=== PATIENT | male | born 1965 | race Caucasian/White ===

== ENCOUNTER 2016-12-28 18:47 | Emergency (ER) | payer OTHER ==
[~2016-12-28] VITALS: Ht 162.6 cm; Wt 64.3 kg
[~2016-12-28 18:47] MED LIST: ERYT1OIN55 OPB
[2016-12-28 18:52] VITALS: TEMP 36.7; Ht 162.6 cm; Wt 64.3 kg
[2016-12-28] MEDS ORDERED: SERT50TA PO (19:58)
[2016-12-28] MEDS ORDERED: TRAZ50TA35 PO (19:58)
[2016-12-28] MEDS ORDERED: HYDR50CA2 PO (19:58)
--- NOTE | 2016-12-28 21:23 | DIAGNOSTIC IMAGING REPORT ---
CT SCAN OF THE LUMBAR SPINE WITHOUT IV CONTRAST CLINICAL HISTORY: Fall with thoracic back pain. Left leg numbness. COMPARISON STUDY: Radiograph of lumbar spine dated 01/28/2010. TECHNIQUE: CT scan of lumbar spine is performed from the lower thoracic spine to the sacrum. Images are reviewed in the axial, sagittal, and coronal planes. IV contrast was not administered for this examination. FINDINGS: The skeletal structures are well mineralized. There is no evidence of fracture or malalignment involving the lumbar spine. Vertebral body height and alignment are maintained. Small anterior osteophytes are seen throughout. There are postoperative changes from laminectomy, posterior fusion, and interposition bone graft at L5-S1. The orthopedic hardware appears intact. Intervertebral screws are present at both levels. The remaining spinous processes in the transverse processes are preserved. There is no evidence of spondylolysis. There is evidence of discectomy at L5-S1. Mild to moderate disc space narrowing is seen at L3-L4 and L4-L5. Only mild disc space narrowing is seen at the remaining lumbar levels. Broad-based posterior disc bulge is seen at L3-L4 and L4-L5. This likely contribute to mild acquired compromise of the central canal. No high-grade neural foraminal stenosis is suggested. No lytic or blastic lesions are seen. The visualized sacrum and bony pelvis appear intact. The paraspinous soft tissues are within normal limits noting postoperative change posteriorly at L5. The partially imaged retroperitoneal structures are grossly unremarkable and incompletely evaluated. There is mild atherosclerotic calcification of the abdominal aorta. IMPRESSION: 1. There is no evidence of fracture or malalignment involving the lumbar spine. 2. Postoperative and degenerative change as detailed above. Dictated: 12/28/2016 7:45 PM Transcribed: 12/28/2016 9:22 PM Sally Electronically signed by: Valdez Stafford M.D. 12/28/2016 9:23 PM Dictated Date/Time: 12/28/2016 7:45 PM
--- NOTE | 2016-12-28 21:25 | DIAGNOSTIC IMAGING REPORT ---
CT SCAN OF THE BONY PELVIS WITHOUT IV CONTRAST CLINICAL HISTORY: Fall. Pelvic pain. COMPARISON STUDY: No priors. TECHNIQUE: CT scan of the bony pelvis is performed from the pelvic inlet to the proximal femora. Images reviewed in the axial, sagittal, and coronal planes. IV contrast was not administered for this examination. CT DOSE: 1493.44 mGy.cm FINDINGS: The skeletal structures are well mineralized. There is no evidence of fracture involving the hips or bony pelvis. The joint spaces of the hips appear preserved. There is no evidence of osteonecrosis. No lytic or blastic lesions are seen. Fusion hardware is noted at L5-S1. The hip joints appear maintained. The sacroiliac joints show minimal degenerative sclerosis. The musculature of the pelvis is normal and symmetric. The prostate gland is mildly enlarged and heterogeneous. The bladder wall appears thickened and trabeculated suggesting chronic outlet obstruction. The visualized small bowel loops and colon are normal in appearance. There is no pelvic sidewall or inguinal lymphadenopathy. Atherosclerotic calcification is seen within the abdominal aorta and iliac arteries. IMPRESSION: There is no evidence of fracture involving the hips or bony pelvis. Dictated: 12/28/2016 7:49 PM Transcribed: 12/28/2016 9:24 PM [email or web address] Electronically signed by: Valdez Stafford M.D. 12/28/2016 9:25 PM Dictated Date/Time: 12/28/2016 7:49 PM
--- NOTE | 2016-12-28 21:37 | DIAGNOSTIC IMAGING REPORT ---
BONY ORBITS 3 VIEWS CLINICAL HISTORY: MRI clearance. FINDINGS: 3 views of the bony orbits are obtained. No prior studies are available for comparison at the time of dictation. There is no radiodense/metallic foreign body seen in the region of the bony orbits. The bony orbits are intact as imaged. The visualized paranasal sinuses and the mastoid air cells appear clear. The imaged calvarium appears intact. IMPRESSION: There is no radiodense/metallic foreign body seen in the region of the bony orbits. Electronically signed by: Valdez Stafford M.D. 12/28/2016 9:36 PM Dictated Date/Time: 12/28/2016 9:35 PM
[2016-12-28] MEDS ORDERED: KETOROLAC TROMETHAMINE 60 MG/2 ML VIAL IM STA (23:11)
--- NOTE | 2016-12-28 23:11 | EMERGENCY ROOM VISIT NOTE ---
History First contact with patient: 19:07 Chief Complaint: BACK PAIN Stated Complaint: LOWER BACK PAIN History of Present Illness The patient is a 51 year old male who presents to the Emergency Room via private vehicle with complaints of "low back pain". The patient states that yesterday, around 11 AM he was 9-10 feet off the ground, ascending a ladder, when the ladder kicked out from underneath him, causing him to fall from the height of the roof. He landed on his feet. He states that he felt okay to time , but since then has been experiencing continued pain in the low back. He notes that the pain is radiating from his low back down his left leg. He feels like his left leg is numb/. He states that the pain is now miserable. He denies any loss of consciousness, striking his head. He denies any abdominal pain. Denies any chest pain or shortness of breath. He denies any lower extremity weakness, bowel or bladder incontinence, numbness or tingling in genital region. He denies any blood in the urine or stool. This is a work-related injury. Review of Systems A complete 6-point Review of Systems was discussed with the patient, with pertinent positives and negatives listed in the History of Present Illness. All remaining Review of Systems questions can be considered negative unless otherwise specified. Past Medical/Surgical History Medical Problems: (1) Back Surgery Social History Smoking Status: Current Every Day Smoker Alcohol Use: occasionally Drug Use: none Marital Status: Occupation Status: employed Current/Historical Medications Scheduled Hydroxyzine Pamoate (Vistaril), 50 MG PO QAM Sertraline (Zoloft), 50 MG PO QAM Trazodone Hcl (Trazodone), 50 MG PO HS Scheduled PRN Oxycodone Ir (Roxicodone Ir), 1-2 TAB PO Q4H PRN for Pain Allergies Coded Allergies: Codeine (Verified Allergy, Unknown, 12/28/16) Latex1 -Allergic Contact Dermititis (Verified Allergy, Unknown, 12/28/16) Uncoded Allergies: CONTRASTMEDIA (Allergy, Unknown, DYE USED IN BACK SURGERY, 09/02/09) Physical Exam Vital Signs Date Time Temp Pulse Resp B/P (MAP) Pulse Ox O2 Delivery O2 Flow Rate FiO2 12/29/16 00:36 77 16 134/81 96 12/28/16 21:00 84 16 134/82 98 Room Air 12/28/16 18:52 36.7 104 18 160/84 98 Room Air Physical Exam VITAL SIGNS - Vital signs and nursing notes were reviewed. Patient is afebrile , hypertensive at 160/84, tachycardic in 104 beats per minute, and is saturating well on room air 98%. GENERAL -51-year-old male appearing his stated age who is in no acute distress. Communicates well with provider and answers questions appropriately. SKIN - Without rashes. The skin overlying the lumbar spine and legs unremarkable. HEAD - NC/AT. NECK - Neck with FROM. Supple to palpation. No C-spine tenderness. No thoracic spine tenderness. LUNGS - Chest wall symmetric without accessory muscle use, intercostals retractions, or central cyanosis. Normal vesicular breath sounds CTA B/L. No wheezes, rales, or rhonchi appreciated. CARDIAC - RRR with S1/S2. No murmur, rubs, or gallops appreciated. ABDOMEN - Abdominal contour without pulsations or visible masses. BS normoactive all four quadrants. No tenderness, palpable masses, hepatosplenomegaly, or ascites noted. MUSCULOSKELETAL: There is tenderness to palpation overlying the inferior lumbar paraspinous musculature, lumbar spine as well as into the left gluteal region. There is no left leg, knee or distal lower extremity tenderness. EXTREMITIES - No clubbing or peripheral cyanosis. No pretibial edema present. He is neurovascularly intact in lower extremities. +5/5 strength noted in UE/LE bilaterally. Medical Decision & Procedures ER Provider Diagnostic Interpretation: CT SCAN OF THE LUMBAR SPINE WITHOUT IV CONTRAST CLINICAL HISTORY: Fall with thoracic back pain. Left leg numbness. COMPARISON STUDY: Radiograph of lumbar spine dated 01/28/2010. TECHNIQUE: CT scan of lumbar spine is performed from the lower thoracic spine to the sacrum. Images are reviewed in the axial, sagittal, and coronal planes. IV contrast was not administered for this examination. FINDINGS: The skeletal structures are well mineralized. There is no evidence of fracture or malalignment involving the lumbar spine. Vertebral body height and alignment are maintained. Small anterior osteophytes are seen throughout. There are postoperative changes from laminectomy, posterior fusion, and interposition bone graft at L5-S1. The orthopedic hardware appears intact. Intervertebral screws are present at both levels. The remaining spinous processes in the transverse processes are preserved. There is no evidence of spondylolysis. There is evidence of discectomy at L5-S1. Mild to moderate disc space narrowing is seen at L3-L4 and L4-L5. Only mild disc space narrowing is seen at the remaining lumbar levels. Broad-based posterior disc bulge is seen at L3-L4 and L4-L5. This likely contribute to mild acquired compromise of the central canal. No high-grade neural foraminal stenosis is suggested. No lytic or blastic lesions are seen. The visualized sacrum and bony pelvis appear intact. The paraspinous soft tissues are within normal limits noting postoperative change posteriorly at L5. The partially imaged retroperitoneal structures are grossly unremarkable and incompletely evaluated. There is mild atherosclerotic calcification of the abdominal aorta. IMPRESSION: 1. There is no evidence of fracture or malalignment involving the lumbar spine. 2. Postoperative and degenerative change as detailed above. Dictated: 12/28/2016 7:45 PM Transcribed: 12/28/2016 9:22 PM [email or web address] Electronically signed by: Valdez Stafford M.D. 12/28/2016 9:23 PM Dictated Date/Time: 12/28/2016 7:[address] SCAN OF THE BONY PELVIS WITHOUT IV CONTRAST CLINICAL HISTORY: Fall. Pelvic pain. COMPARISON STUDY: No priors. TECHNIQUE: CT scan of the bony pelvis is performed from the pelvic inlet to the proximal femora. Images reviewed in the axial, sagittal, and coronal planes. IV contrast was not administered for this examination. CT DOSE: 1493.44 mGy.cm FINDINGS: The skeletal structures are well mineralized. There is no evidence of fracture involving the hips or bony pelvis. The joint spaces of the hips appear preserved. There is no evidence of osteonecrosis. No lytic or blastic lesions are seen. Fusion hardware is noted at L5-S1. The hip joints appear maintained. The sacroiliac joints show minimal degenerative sclerosis. The musculature of the pelvis is normal and symmetric. The prostate gland is mildly enlarged and heterogeneous. The bladder wall appears thickened and trabeculated suggesting chronic outlet obstruction. The visualized small bowel loops and colon are normal in appearance. There is no pelvic sidewall or inguinal lymphadenopathy. Atherosclerotic calcification is seen within the abdominal aorta and iliac arteries. IMPRESSION: There is no evidence of fracture involving the hips or bony pelvis. Dictated: 12/28/2016 7:49 PM Transcribed: 12/28/2016 9:24 PM [email or web address] Electronically signed by: Valdez Stafford M.D. 12/28/2016 9:25 PM Dictated Date/Time: 12/28/2016 7:49 PM [~ rep ct add3]] MRI OF THE LUMBAR SPINE WITHOUT IV CONTRAST CLINICAL HISTORY: Fall from height. Low back pain. Left lower extremity numbness. COMPARISON STUDY: CT scan of the lumbar spine dated 12/28/2016 TECHNIQUE: MRI of lumbar spine is performed utilizing various T1 and T2-weighted sequences in the axial and sagittal planes. IV contrast was not administered for this examination. FINDINGS: Lumbar spine: Vertebral body height and alignment are maintained throughout the lumbar spine. There is no MRI evidence of fracture. There are postoperative changes from L5 -S1 spinal fusion. Susceptibility artifact from orthopedic hardware degrades assessment at this level. The remaining spinous processes and the transverse processes appear intact. There is no evidence of spondylolysis. A hemangioma is noted in the body of L2. Minimal degenerative endplate edema is seen at L3-L4. Intervertebral discs: There is evidence of discectomy at L5-S1. Degenerative disc desiccation is seen throughout the lumbar spine. Mild loss of height is seen throughout, greatest at L3-L4. Spinal cord: The visualized spinal cord is normal in morphology and signal intensity. The conus medullaris terminates at the level of L2. The nerve roots of the cauda equina are normal in morphology. No epidural fluid collection is suggested. T12-L1: Unremarkable. L1-L2: Unremarkable. L2-L3: Unremarkable. L3-L4: There is broad-based posterior disc bulge with annular fissure. In conjunction with hypertrophy of the ligamentum flavum there is mild central canal stenosis at this level with a minimum AP diameter of 7.5 mm. There is bilateral subarticular stenosis, left greater than right. This likely abuts the exiting left L3 and the transiting left L4 nerve roots. The neural foramina are widely patent. L4-L5: There is a small posterior disc bulge with annular fissure. In conjunction with hypertrophy of the ligamentum flavum there is mild narrowing of the central canal, greatest transversely. There is mild bilateral subarticular stenosis. Facet arthropathy causes mild bilateral neural foraminal stenosis. L5-S1: The central canal and neural foramina appear patent. Sacrum: Visualized sacrum is normal in morphology and signal intensity. Soft tissues: The paraspinous soft tissues are within normal limits. Postoperative changes are seen posteriorly at L5. The partially imaged retroperitoneal structures are grossly unremarkable but incompletely assessed. IMPRESSION: 1. There is no MRI evidence of fracture involving the lumbar spine. 2. Postoperative change from spinal fusion at L5-S1 is again noted. 3. Lumbosacral spondylosis as detailed above with acquired compromise of the central canal at L3-L4 and L4-L5. See discussion for detailed level by level analysis. Electronically signed by: Valdez Stafford M.D. 12/28/2016 11:49 PM Dictated Date/Time: 12/28/2016 11:42 PM Medications Administered Medications (Trade) Dose Ordered Sig/Aldo Route Start Time Stop Time Status Last Admin Dose Admin Ketorolac Tromethamine (Toradol Inj) 60 mg NOW STAT IM 12/28/16 23:11 12/28/16 23:12 DC 12/28/16 23:11 60 MG Medical Decision Patient was seen and evaluated as above. After obtaining a thorough history and physical examination patient was offered pain medication and declined. CT scan was obtained of the lumbar spine and pelvis secondary to mechanism of injury. Results as above. No acute fracture. Findings were discussed with patient. He was still experiencing a significant numbness in the left lower extremity, concerning for the need over an MRI. His was discussed with the patient. He did have to have an x-ray of the orbits, to rule out metallic foreign body. This did not reveal any abnormalities. He was scheduled to go down to the MRI, however I was called by the nurse to go to the room as the patient wanted pain medication. As I went to evaluate the patient, the room was empty. I then talked with security, and he was seen on the security cameras leaving the emergency Department. I called patient back, and it appears that there may been a miscommunication therefore he stated he would certainly return as soon as possible. He came back within a few minutes. The patient went straight to the MRI scanner. I discussed the results. Official results as above. No murmur or process, however his radicular symptoms certainly are verified by these findings. He is to follow-up with Workmen's Compensation approved individuals, any special forces specialist. He short-term pain prescription will be provided to him. I will hold on Medrol Dosepak, as this is adequately metabolized and he recently finished Jerson and I'm unsure of his current liver function. He was educated upon management today's findings, educated upon worrisome symptoms which to return, had questions were discharge, and was discharged home in good condition. I believe the patient is stable for departure at this time, I do not believe that any consult needs to occur this evening with a special forces specialist. Patient is ambulatory with minimal difficulty. In evaluation treatment this patient following differential diagnoses entertained: Cauda equina syndrome, fracture, neurovascular compromise, among others. Impression Primary Impression: Low back pain Additional Impression: Fall from roof Departure Information Dispostion Home / Self-Care Condition GOOD Prescriptions Oxycodone Ir (Roxicodone Ir) 5 Mg Tab 1-2 TAB PO Q4H Y for Pain, #20 TAB For Initial Treatment Prov: Michael Vargas PA-C 12/29/16 Referrals Hunter Cano M.D. (PCP) Andrzej Plunkett, DO Patient Instructions My [facility] Additional Instructions You have been treated in the Emergency Department for Back Pain. You have been prescribed Oxy IR to be used for pain control. This is a narcotic medication. You cannot drive or consume alcohol while on this medicine. This medicine should only be used for pain that cannot be controlled with over-the- counter pain medicines. For pain control, you can use the following [id number] medicines (if >12 yo): - Regular strength (200 mg/tab) Advil (ibuprofen) 1-2 tabs every 4-6 hours as needed. Do not exceed a dose of 3200 mg per day. If this is an acute injury, ice can be applied to the area of pain for the first 3 days to help decrease pain and inflammation. After the first 3 days, a heating pad can be used over the area for continued soothing relief. You should schedule a follow-up appointment in 2-3 days with your Primary Care Provider for further evaluation and treatment of your back pain. If needed, a special forces specialist has been listed. Please follow-up with your Workmen's Compensation individual following today's visit. Return to the Emergency Department if your current symptoms worsen despite treatment course outlined above, or if you develop any of the following symptoms : intractable pain despite aforementioned treatment course, loss of control of your bowel or bladder, numbness or tingling in your groin, or development of a fever. Please return to the emergency department with any new/concerning symptoms. Problem Qualifiers
--- NOTE | 2016-12-28 23:50 | DIAGNOSTIC IMAGING REPORT ---
MRI OF THE LUMBAR SPINE WITHOUT IV CONTRAST CLINICAL HISTORY: Fall from height. Low back pain. Left lower extremity numbness. COMPARISON STUDY: CT scan of the lumbar spine dated 12/28/2016 TECHNIQUE: MRI of lumbar spine is performed utilizing various T1 and T2-weighted sequences in the axial and sagittal planes. IV contrast was not administered for this examination. FINDINGS: Lumbar spine: Vertebral body height and alignment are maintained throughout the lumbar spine. There is no MRI evidence of fracture. There are postoperative changes from L5 -S1 spinal fusion. Susceptibility artifact from orthopedic hardware degrades assessment at this level. The remaining spinous processes and the transverse processes appear intact. There is no evidence of spondylolysis. A hemangioma is noted in the body of L2. Minimal degenerative endplate edema is seen at L3-L4. Intervertebral discs: There is evidence of discectomy at L5-S1. Degenerative disc desiccation is seen throughout the lumbar spine. Mild loss of height is seen throughout, greatest at L3-L4. Spinal cord: The visualized spinal cord is normal in morphology and signal intensity. The conus medullaris terminates at the level of L2. The nerve roots of the cauda equina are normal in morphology. No epidural fluid collection is suggested. T12-L1: Unremarkable. L1-L2: Unremarkable. L2-L3: Unremarkable. L3-L4: There is broad-based posterior disc bulge with annular fissure. In conjunction with hypertrophy of the ligamentum flavum there is mild central canal stenosis at this level with a minimum AP diameter of 7.5 mm. There is bilateral subarticular stenosis, left greater than right. This likely abuts the exiting left L3 and the transiting left L4 nerve roots. The neural foramina are widely patent. L4-L5: There is a small posterior disc bulge with annular fissure. In conjunction with hypertrophy of the ligamentum flavum there is mild narrowing of the central canal, greatest transversely. There is mild bilateral subarticular stenosis. Facet arthropathy causes mild bilateral neural foraminal stenosis. L5-S1: The central canal and neural foramina appear patent. Sacrum: Visualized sacrum is normal in morphology and signal intensity. Soft tissues: The paraspinous soft tissues are within normal limits. Postoperative changes are seen posteriorly at L5. The partially imaged retroperitoneal structures are grossly unremarkable but incompletely assessed. IMPRESSION: 1. There is no MRI evidence of fracture involving the lumbar spine. 2. Postoperative change from spinal fusion at L5-S1 is again noted. 3. Lumbosacral spondylosis as detailed above with acquired compromise of the central canal at L3-L4 and L4-L5. See discussion for detailed level by level analysis. Electronically signed by: Valdez Stafford M.D. 12/28/2016 11:49 PM Dictated Date/Time: 12/28/2016 11:42 PM
[2016-12-29] MEDS ORDERED: OXYCODONE IR HOME PACK PO STA (00:15)
[2016-12-29] MEDS ORDERED: OXYC1TAB3 PO (00:18)
[2016-12-29 00:36] VITALS: BP 134/81; PULSE 77; O2SAT 96
== END 2016-12-29 00:37 | disposition home or self-care (01) ==
LOC: C.EDB 18:48 → C.EDD 12-29 00:37
DX: M54.5 Low back pain (principal); W11.XXXA Fall on and from ladder, initial encounter; F17.200 Nicotine dependence, unspecified, uncomplicated

== ENCOUNTER 2017-07-26 10:40 | Emergency (ER) | payer SELFPAY ==
[~2017-07-26] VITALS: Ht 162.6 cm; Wt 58.7 kg
[~2017-07-26 10:40] MED LIST changes: -ERYT1OIN55 OPB; +HYDR50CA2 PO; +SERT50TA PO; +TRAZ50TA35 PO
[2017-07-26 10:49] VITALS: TEMP 36.5; Ht 162.6 cm; Wt 58.7 kg
[2017-07-26] MEDS ORDERED: ETOD-146 PO (10:59)
[2017-07-26] MEDS ORDERED: HYDR-3126 PO (11:01)
[2017-07-26] MEDS ORDERED: SODIUM CHLORIDE 0.9% 1000ML 1,000 ML IV STA ×2 (11:05→12:42)
[2017-07-26] MEDS ORDERED: ONDANSETRON INJ 2 MG/ML 2 ML VIAL IV STA (11:05)
[2017-07-26] MEDS ORDERED: KETOROLAC TROMETHAMINE 30 MG/ML VIAL IV STA (11:05)
--- NOTE | 2017-07-26 11:10 | EMERGENCY ROOM VISIT NOTE ---
History Report prepared by Hermila: Yeison Gonzalez Under the Supervision of: Dr. Valdez Hernandez M.D. First contact with patient: 11:01 Chief Complaint: FLU LIKE SX Stated Complaint: FLU History of Present Illness The patient is a 52 year old male who presents to the Emergency Room with complaints of a persistent illness that started a week ago. He states that he has been nauseous, and has had a decreased appetite and has been unable to eat much at all. The patient says that he has been unable to drink much as well, and has only been consuming chicken broth and tea. He adds that he has been having episodes of diarrhea, and he thinks that he has had a fever, as he has woken up with sweats multiple times. The patient notes that he has a bit of a cough, and his whole body aches. The patient adds that he has had persistent abdominal pain as well. He denies any loss of consciousness, vomiting, or hematochezia. The patient notes that he has not gotten his flu shot this season. He says that his is getting sick with similar symptoms currently. He is a smoker. Source of History: patient Onset: A week ago Position: other (global - illness) Quality: other ( getting similar illness now) Timing: other (persistent) Associated Symptoms: + fevers, + diaphoresis, + cough, + nausea, + abdominal pain, + diarrhea, No LOC, No vomiting, No hematochezia Note: Associated symptoms: Unable to eat or drink much. Review of Systems See HPI for pertinent positives & negatives. A total of 10 systems reviewed and were otherwise negative. Past Medical & Surgical Medical Problems: (1) Back Surgery Family History No pertinent family history Social History Smoking Status: Current Every Day Smoker Alcohol Use: occasionally Drug Use: none Marital Status: Occupation Status: employed Current/Historical Medications Scheduled Ondasetron Odt (Zofran Odt), 4 MG SL Q6H Sertraline (Zoloft), 50 MG PO QAM Trazodone Hcl (Trazodone), 50 MG PO HS Scheduled PRN Etodolac (Lodine), 300 MG PO Q8 PRN for Pain Hydroxyzine Hcl (Atarax), 50 MG PO Q6 PRN for Anxiety/Agitation Allergies Coded Allergies: Codeine (Verified Allergy, Unknown, 07/26/17) Latex1 -Allergic Contact Dermititis (Verified Allergy, Unknown, 07/26/17) Uncoded Allergies: CONTRASTMEDIA (Allergy, Unknown, DYE USED IN BACK SURGERY, 09/02/09) Physical Exam Vital Signs Date Time Temp Pulse Resp B/P (MAP) Pulse Ox O2 Delivery O2 Flow Rate FiO2 07/26/17 14:06 90 25 115/79 97 Room Air 07/26/17 12:55 85 16 137/80 98 Room Air 07/26/17 12:09 86 07/26/17 11:30 94 16 137/82 97 Room Air 07/26/17 11:23 99 Room Air 07/26/17 10:49 36.5 110 18 145/88 94 Room Air Physical Exam GENERAL: Patient is in no acute distress. HEENT: No acute trauma, normocephalic atraumatic, mucous membranes moist, no nasal congestion, no scleral icterus. NECK: No stridor, no adenopathy, no meningismus, trachea is midline. LUNGS: Scattered wheezing and crackles. Breath sounds are equal. No respiratory distress. HEART: Without murmurs gallops or rubs, regular rate and rhythm. ABDOMEN: Diffusely mildly tender. Soft, bowel sounds positive, no hernias, no peritonitis. EXTREMITIES: No cyanosis or edema, full range of motion of all the joints without pain or difficulty, no signs for acute trauma. NEUROLOGIC: Oriented x 3, no acute motor or sensory deficits, no focal weakness. SKIN: No rash, no jaundice, no diaphoresis. Medical Decision & Procedures ER Provider Diagnostic Interpretation: X-ray results as stated below per interpretation by me and the radiologist: PA CHEST WITH ABDOMINAL SERIES CLINICAL HISTORY: Nausea and diarrhea. FINDINGS: A PA chest radiograph is compared to study dated 09/18/2012. The cardiomediastinal silhouette is unremarkable. The lungs and pleural spaces are clear. No pneumothorax is seen. The bony thorax is grossly intact. Supine and erect abdominal radiographs are correlated with lumbar spine radiographs dated 01/28/2010. There is a nonobstructed abdominal bowel gas pattern. No evidence of intraperitoneal free air is seen. There are no abnormal abdominal calcifications. The lumbosacral spine and bony pelvis appear intact. There are postoperative changes from L5 -S1 spinal fusion. IMPRESSION: 1. No active disease in the chest. 2. Nonobstructed abdominal bowel gas pattern. Electronically signed by: Valdez Stafford M.D. 07/26/2017 12:09 PM Dictated Date/Time: 07/26/2017 12:08 PM Laboratory Results 07/26/17 11:20 Red Blood Count 6.04, Mean Corpuscular Volume 89.7, Mean Corpuscular Hemoglobin 32.8, Mean Corpuscular Hemoglobin Concent 36.5, Mean Platelet Volume 9.4, Neutrophils (%) (Auto) 45.3, Lymphocytes (%) (Auto) 30.6, Monocytes (%) (Auto) 22.5, Eosinophils (%) (Auto) 0.7, Basophils (%) (Auto) 0.7, Neutrophils # (Auto ) 2.53, Lymphocytes # (Auto) 1.71, Monocytes # (Auto) 1.26, Eosinophils # (Auto ) 0.04, Basophils # (Auto) 0.04 07/26/17 11:20 Test 07/26/17 11:14 07/26/17 11:20 Influenza Type A Antigen Neg for Influ A (NEG) Influenza Type B Antigen Neg for Influ B (NEG) White Blood Count 5.59 K/uL (4.8-10.8) Red Blood Count 6.04 M/uL (4.7-6.1) Hemoglobin 19.8 g/dL (14.0-18.0) Hematocrit 54.2 % (42-52) Mean Corpuscular Volume 89.7 fL (80-100) Mean Corpuscular Hemoglobin 32.8 pg (25-34) Mean Corpuscular Hemoglobin Concent 36.5 g/dl (32-36) Platelet Count 216 K/uL (130-400) Mean Platelet Volume 9.4 fL (7.4-10.4) Neutrophils (%) (Auto) 45.3 % Lymphocytes (%) (Auto) 30.6 % Monocytes (%) (Auto) 22.5 % Eosinophils (%) (Auto) 0.7 % Basophils (%) (Auto) 0.7 % Neutrophils # (Auto) 2.53 K/uL (1.4-6.5) Lymphocytes # (Auto) 1.71 K/uL (1.2-3.4) Monocytes # (Auto) 1.26 K/uL (0.11-0.59) Eosinophils # (Auto) 0.04 K/uL (0-0.5) Basophils # (Auto) 0.04 K/uL (0-0.2) RDW Standard Deviation 45.0 fL (36.4-46.3) RDW Coefficient of Variation 13.7 % (11.5-14.5) Immature Granulocyte % (Auto) 0.2 % Immature Granulocyte # (Auto) 0.01 K/uL (0.00-0.02) Anion Gap 8.0 mmol/L (3-11) Est Creatinine Clear Calc Drug Dose 55.6 ml/min Estimated GFR () 73.4 Estimated GFR (Non- 63.3 BUN/Creatinine Ratio 15.2 (10-20) Calcium Level 9.6 mg/dl (8.5-10.1) Magnesium Level 2.4 mg/dl (1.8-2.4) Total Bilirubin 0.5 mg/dl (0.2-1) Aspartate Amino Transf (AST/SGOT) 28 U/L (15-37) Alanine Aminotransferase (ALT/SGPT) 28 U/L (12-78) Alkaline Phosphatase 55 U/L (45-117) Troponin I < 0.015 ng/ml (0-0.045) Total Protein 9.3 gm/dl (6.4-8.2) Albumin 4.2 gm/dl (3.4-5.0) Globulin 5.1 gm/dl (2.5-4.0) Albumin/Globulin Ratio 0.8 (0.9-2) Thyroid Stimulating Hormone (TSH) 1.130 uIu/ml (0.300-4.500) Laboratory results reviewed by me. Medications Administered Medications (Trade) Dose Ordered Sig/Aldo Route Start Time Stop Time Status Last Admin Dose Admin Ondansetron HCl (Zofran Inj) 4 mg NOW STAT IV 07/26/17 11:05 07/26/17 11:08 DC 07/26/17 11:31 4 MG Sodium Chloride 1,000 ml @ 999 mls/hr Q1H1M STAT IV 07/26/17 11:05 07/26/17 12:05 DC 07/26/17 11:05 999 MLS/HR Ketorolac Tromethamine (Toradol Inj) 30 mg NOW STAT IV 07/26/17 11:05 07/26/17 11:08 DC 07/26/17 11:31 30 MG Sodium Chloride 1,000 ml @ 999 mls/hr Q1H1M STAT IV 07/26/17 12:42 07/26/17 13:42 DC 07/26/17 12:54 999 MLS/HR ECG Indication: nausea Rate (beats per minute): 91 Rhythm: normal sinus Findings: no acute ischemic change, no ectopy ED Course 1103: The patient was evaluated in room C10. A complete history and physical exam was performed. 1105: Ordered Toradol Inj 30 mg IV, NSS 1000 ml @ 999 mls/hr IV, Zofran Inj 4 mg IV. 1242: I reevaluated the patient and he is doing okay. 1358: Reevaluated the patient and he is resting. Discussed results and discharge instructions: he verbalized understanding and agreement. The patient is ready for discharge. Medical Decision Differential diagnosis includes but is not limited to pneumonia or bronchitis, influenza, dehydration, electrolyte imbalance, anemia, diverticulitis or colitis. There is no leukocytosis or concerning anemia. No significant electrolyte abnormality, kidney failure or hepatitis. Patient appears to be in a euthyroid state. Obstruction series does not show bowel obstruction or pneumonia. There is no free air. EKG shows a normal sinus rhythm, no acute ischemia. Cardiac enzyme testing 1 is not consistent with acute cardiac injury. Influenza testing is negative. The patient received IV Zofran, IV Toradol and IV saline, he feels improved. The patient's workup is reassuring. His illness is likely viral. He does feel comfortable with discharge. I will prescribe Zofran for nausea, a bland diet was suggested. Tylenol for pain. If worsening or not improving, he can return for reassessment. Medication Reconcilliation Current Medication List: was personally reviewed by me Blood Pressure Screening Patient's blood pressure: Elevated blood pressure Blood pressure disposition: Elevated BP felt to be situational Impression Primary Impression: Dehydration Additional Impressions: Diarrhea Weakness Nausea Scribe Attestation The scribe's documentation has been prepared under my direction and personally reviewed by me in its entirety. I confirm that the note above accurately reflects all work, treatment, procedures, and medical decision making performed by me. Departure Information Dispostion Home / Self-Care Prescriptions Ondasetron Odt (ZOFRAN ODT) 4 Mg Tab 4 MG SL Q6H for Nausea, #12 TAB Prov: Feese, Valdez J.,M.D. 07/26/17 Referrals Hunter Cano M.D. Forms HOME CARE DOCUMENTATION FORM, IMPORTANT VISIT INFORMATION Patient Instructions My [facility] Additional Instructions slowly advance the diet--crackers, soup, toast, gatorade rest tylenol for pain and aches zofran 1 tab every 6 hours for nausea return if worsening lab testing and imaging today was all ok Problem Qualifiers
[2017-07-26 11:23] VITALS: O2SAT 99
[2017-07-26 11:48] LABS: INFLUENZA B ANTIGEN Neg for Influ B (NEG)
[2017-07-26 11:54] LABS: BASO % 0.7 %; BASO ABS # 0.04 K/uL (0-0.2); EOS % 0.7 %; EOS ABS # 0.04 K/uL (0-0.5); HEMATOCRIT 54.2 % (42-52); HEMOGLOBIN 19.8 g/dL (14.0-18.0); IG# 0.01 K/uL (0.00-0.02); LYMPH % 30.6 %; LYMPH ABS # 1.71 K/uL (1.2-3.4); MEAN CELL VOLUME 89.7 fL (80-100); MEAN CORPUSCULAR HEMOGLOBIN 32.8 pg (25-34); MEAN CORPUSCULAR HGB CONC 36.5 g/dl (32-36); MEAN PLATELET VOLUME 9.4 fL (7.4-10.4); MONO % 22.5 %; MONO ABS # 1.26 K/uL (0.11-0.59); NEUT % 45.3 %; NEUT ABS # 2.53 K/uL (1.4-6.5); PLATELET COUNT 216 K/uL (130-400); RED CELL DISTRIBUTION WIDTH CV 13.7 % (11.5-14.5); WHITE BLOOD COUNT 5.59 K/uL (4.8-10.8)
--- NOTE | 2017-07-26 12:10 | DIAGNOSTIC IMAGING REPORT ---
PA CHEST WITH ABDOMINAL SERIES CLINICAL HISTORY: Nausea and diarrhea. FINDINGS: A PA chest radiograph is compared to study dated 09/18/2012. The cardiomediastinal silhouette is unremarkable. The lungs and pleural spaces are clear. No pneumothorax is seen. The bony thorax is grossly intact. Supine and erect abdominal radiographs are correlated with lumbar spine radiographs dated 01/28/2010. There is a nonobstructed abdominal bowel gas pattern. No evidence of intraperitoneal free air is seen. There are no abnormal abdominal calcifications. The lumbosacral spine and bony pelvis appear intact. There are postoperative changes from L5 -S1 spinal fusion. IMPRESSION: 1. No active disease in the chest. 2. Nonobstructed abdominal bowel gas pattern. Electronically signed by: Valdez Stafford M.D. 07/26/2017 12:09 PM Dictated Date/Time: 07/26/2017 12:08 PM
[2017-07-26 12:11] LABS: ALBUMIN 4.2 gm/dl (3.4-5.0); ALT/SGPT 28 U/L (12-78); BLOOD UREA NITROGEN 20 mg/dl (7-18); CALCIUM 9.6 mg/dl (8.5-10.1); CARBON DIOXIDE 27 mmol/L (21-32); CREATININE 1.29 mg/dl (0.60-1.40); GLUCOSE 101 mg/dl (70-99); POTASSIUM 3.6 mmol/L (3.5-5.1); SODIUM 132 mmol/L (136-145)
[2017-07-26 12:22] LABS: ALKALINE PHOSPHATASE 55 U/L (45-117); AST/SGOT 28 U/L (15-37); TOTAL PROTEIN 9.3 gm/dl (6.4-8.2)
[2017-07-26] MEDS ORDERED: ONDA4TAB10 SL (14:04)
[2017-07-26 14:06] VITALS: BP 115/79; PULSE 90; O2SAT 97
== END 2017-07-26 14:14 | disposition home or self-care (01) ==
LOC: C.EDB 10:41 → C.EDC 14:14
DX: E86.0 Dehydration (principal); R53.1 Weakness; F17.210 Nicotine dependence, cigarettes, uncomplicated; Z79.899 Other long term (current) drug therapy